=== PATIENT | female | born 1980 | race Caucasian/White ===

== ENCOUNTER → 2017-07-19 | Outpatient (CLI) | payer OTHER ==
[2017-07-19 17:23] LABS: HEMOGLOBIN 12.3 gm/dl (12.3-15.3); RED BLOOD COUNT 4.15 M/UL (4.00-5.10); WHITE BLOOD COUNT 4.6 K/UL (4.5-11.0)
[2017-07-19 17:44] LABS: BUN/CREATININE RATIO 18 (0-10)
== END ==
LOC: LAB 16:25
PROVIDERS: Internal Medicine Cardiovascular Disease
DX: R53.83 Other fatigue (principal); R79.89 Other specified abnormal findings of blood chemistry; E78.2 Mixed hyperlipidemia
CPT/HCPCS: 36415; 80053; 80061; 82671; 83001; 83002; 84144; 84402; 84443; 85025

== ENCOUNTER 2021-12-11 07:36 | Emergency (ER) | payer SELFPAY ==
[2021-12-11 08:29] LABS: HEMOGLOBIN 13.2 gm/dl (12.3-15.3); RED BLOOD COUNT 4.57 M/UL (4.00-5.10); WHITE BLOOD COUNT 4.3 K/UL (4.5-11.0)
[2021-12-11 09:36] LABS: BUN/CREATININE RATIO 24 (0-10)
[2021-12-11] MEDS ORDERED: OMNICEF 300 MG300 MG PO (11:02)
[2021-12-11] MEDS ORDERED: AZITHROMYCIN250 MG PO (11:02)
== END 2021-12-11 11:30 | disposition home or self-care (01) ==
LOC: ER1 07:36
PROVIDERS: Emergency Medicine
DX: N39.0 Urinary tract infection, site not specified (principal); R50.9 Fever, unspecified; Z20.822 Contact with and (suspected) exposure to COVID-19
CPT/HCPCS: 0240U; 71045; 80053; 81001; 83605; 84703; 85025; 87040; 87086; 96374; 99284; J0696